=== PATIENT | male | born 1955 | race Caucasian/White ===

== ENCOUNTER 2019-05-20 10:37 | Emergency (ER) | payer OTHER ==
--- NOTE | 2019-05-20 12:32 | RAD REPORT ---
EXAM DESCRIPTION: US - Extremity Venous Uni Ltd - 05/20/2019 12:15 pm CLINICAL HISTORY: Pain;Swelling Leg swelling and edema. COMPARISON: No comparisons FINDINGS: Left lower extremity venous system was interrogated with Doppler technique. Normal flow, c ompressibility and augmentation was noted. There is no DVT present. IMPRESSION: No evidence of left lower extremity deep venous thrombosis.
--- NOTE | 2019-05-20 13:26 | ER ---
Nurse's Notes [facility] Name: Chuy Curtis Age: 63 yrs Sex: Male : 1955 Arrival Date: 05/20/2019 Time: 10:40 Bed 15 Private MD: Diagnosis: Pain in left lower leg;Edema, unspecified Presentation: 05/19 11:40 Chief complaint: Patient states: L knee swellon 3 weeks ago but has resolved. L calf ca1 pain and swelling. L ankle swelling. Pain started for couple weeks, but swelling started yesterday. Coronavirus screen: The patient has NOT traveled to a country currently being monitored by the [facility] within the last 14 days. The patient has NOT had contact with any known and/or suspected case of coronavirus. Ebola Screen: Patient negative for fever greater than or equal to 101.5 degrees Fahrenheit, and additional compatible Ebola Virus Disease symptoms Patient denies exposure to infectious person. Patient denies travel to an Ebola-affected area in the 21 days before illness onset. No symptoms or risks identified at this time. Initial Sepsis Screen: Does the patient meet any 2 criteria? No. Patient's initial sepsis screen is negative. Does the patient have a suspected source of infection? No. Patient's initial sepsis screen is negative. Risk Assessment: Do you want to hurt yourself or someone else? Patient reports no desire to harm self or others. 11:40 Method Of Arrival: Ambulatory ca1 11:40 Acuity: REDD 3 ca1 11:40 Onset of symptoms was May 20, 2019. ca1 Triage Assessment: 11:46 General: Appears in no apparent distress. comfortable, Behavior is calm, cooperative, ca1 appropriate for age. Pain: Complains of pain in left calf. Historical: - Allergies: 11:46 No Known Allergies; ca1 - Home Meds: 11:46 metoprolol tartrate 50 mg oral tab 1 tab once daily [Active]; donepezil 10 mg oral tab ca1 1 tab once daily [Active]; duloxetine 60 mg oral cpDR 1 cap once daily [Active]; - PMHx: 11:46 chronic back pain; GERD; Hypertension; ca1 - PSHx: 11:46 Appendectomy; Tonsillectomy; Shoulder; Knee; ca1 - Immunization history:: Adult Immunizations up to date, Pneumococcal vaccine is not up to date, Flu vaccine is not up to date. Patient has never been vaccinated. - Social history:: Smoking status: Patient reports use of chewing tobacco. Screenin:40 Abuse screen: Denies threats or abuse. Denies injuries from another. Nutritional bp screening: No deficits noted. Tuberculosis screening: No symptoms or risk factors identified. Fall Risk None identified. Assessment: 11:40 General: SEE TRIAGE NOTE. bp 12:40 Reassessment: RAD RESULTS PENDING. NO CHANGE IN PT STATUS. bp 13:49 Reassessment: PT D/C HOME AMBULATORY, DX WITH UNSPECIFIED LEG PAIN. bp Vital Signs: 11:40 BP 130 / 89; Pulse 61; Resp 17 S; Temp 97.3(O); Pulse Ox 100% on R/A; Weight 83.91 kg ca1 (R); Height 6 ft. 0 in. (182.88 cm); Pain 0/10; 12:47 BP 133 / 83; Pulse 86; Resp 17; Pulse Ox 100% ; bp 13:48 BP 141 / 79; Pulse 79; Resp 17; Temp 97.5; Pulse Ox 100% ; bp 11:40 Body Mass Index 25.09 (83.91 kg, 182.88 cm) ca1 ED Course: 10:40 Patient arrived in ED. rg4 11:44 Triage completed. ca1 11:46 Arm band placed on right wrist. ca1 12:16 US Extremity Venous Unilateral Ltd In Process Unspecified. EDMS 12:34 [facility]ccann [facility]C [facility]. kb 12:34 Daniele Estrada MD is Attending Physician. kb 12:39 Vasyl Gastelum, RN is Primary Nurse. bp 12:40 Patient has correct armband on for positive identification. Bed in low position. Call bp light in reach. Side rails up X2. 13:49 No provider procedures requiring assistance completed. Patient did not have IV access bp during this emergency room visit. Administered Medications: No medications were administered Outcome: 13:26 Discharge ordered by . kb 13:49 Discharged to home ambulatory. bp 13:49 Condition: stable 13:49 Discharge instructions given to patient, Instructed on discharge instructions, follow up and referral plans. Demonstrated understanding of instructions, follow-up care. 13:50 Patient left the ED. bp Signatures: Dispatcher [employer] EDSC Keri Mccann FNP-C FNP-Ckb Garcia, Rubi rg4 Vasyl Gastelum, TAN RN bp AcValerie lopez RN RN ca1 Corrections: (The following items were deleted from the chart) 11:46 11:46 Social history: Smoking status: Patient denies any tobacco usage or history of. ca1 ca1 11:47 11:40 Pulse 61bpm; Resp 17bpm; Spontaneous; Pulse Ox 100% RA; Temp 97.3F Oral; 83.91 kg ca1 Reported; Height 6 ft. 0 in.; BMI: 25.0; Pain 0/10; ca1 12:47 12:40 Reassessment: RAD STUDIES PENDING. NO CHANGE IN PT STATUS bp bp
--- NOTE | 2019-05-20 13:27 | EDPHYS ---
Physician Documentation [facility] Name: Chuy Curtis Age: 63 yrs Sex: Male : 1955 Arrival Date: 05/20/2019 Time: 10:40 Bed 15 Private MD: ED Physician Daniele Estrada HPI: 05/19 13:23 This 63 yrs old Male presents to ER via Ambulatory with complaints of Leg kb Pain. 13:23 The patient presents with pain, that is acute, swelling, tenderness. The complaints kb affect the right calf. Context: The problem was sustained at home, resulted from an unknown cause, the patient can fully bear weight, the patient is able to ambulate. Onset: The symptoms/episode began/occurred 2 week(s) ago. Modifying factors: The symptoms are alleviated by nothing. the symptoms are aggravated by weight bearing. Associated signs and symptoms: Pertinent positives: calf tenderness, swelling. Treatment prior to arrival includes: no previous treatment. Severity of symptoms: At their worst the symptoms were moderate, in the emergency department the symptoms are unchanged. The patient has not experienced similar symptoms in the past. The patient has not recently seen a physician. Pt reports he has had some pain and swelling to left lower leg intermittently over the past 2-3 weeks. States he was doing some stretches because his calf felt tight and then the swelling got worse. . Historical: - Allergies: 11:46 No Known Allergies; ca1 - Home Meds: 11:46 metoprolol tartrate 50 mg oral tab 1 tab once daily [Active]; donepezil 10 mg oral tab ca1 1 tab once daily [Active]; duloxetine 60 mg oral cpDR 1 cap once daily [Active]; - PMHx: 11:46 chronic back pain; GERD; Hypertension; ca1 - PSHx: 11:46 Appendectomy; Tonsillectomy; Shoulder; Knee; ca1 - Immunization history:: Adult Immunizations up to date, Pneumococcal vaccine is not up to date, Flu vaccine is not up to date. Patient has never been vaccinated. - Social history:: Smoking status: Patient reports use of chewing tobacco. ROS: 13:22 Constitutional: Negative for fever, chills, and weight loss, ENT: Negative for injury, kb pain, and discharge, Cardiovascular: Negative for chest pain, palpitations, and edema, Respiratory: Negative for shortness of breath, cough, wheezing, and pleuritic chest pain, Abdomen/GI: Negative for abdominal pain, nausea, vomiting, diarrhea, and constipation, Back: Negative for injury and pain, Skin: Negative for injury, rash, and discoloration, Neuro: Negative for headache, weakness, numbness, tingling, and seizure. 13:22 MS/extremity: Positive for pain, swelling, tenderness, of the left calf. Exam: 13:22 Constitutional: This is a well developed, well nourished patient who is awake, alert, kb and in no acute distress. Head/Face: Normocephalic, atraumatic. Neck: Trachea midline, no thyromegaly or masses palpated, and no cervical lymphadenopathy. Supple, full range of motion without nuchal rigidity, or vertebral point tenderness. No Meningismus. Chest/axilla: Normal chest wall appearance and motion. Nontender with no deformity. No lesions are appreciated. Cardiovascular: Regular rate and rhythm with a normal S1 and S2. No gallops, murmurs, or rubs. Normal PMI, no JVD. No pulse deficits. Respiratory: Lungs have equal breath sounds bilaterally, clear to auscultation and percussion. No rales, rhonchi or wheezes noted. No increased work of breathing, no retractions or nasal flaring. Abdomen/GI: Soft, non-tender, with normal bowel sounds. No distension or tympany. No guarding or rebound. No evidence of tenderness throughout. Back: No spinal tenderness. No costovertebral tenderness. Full range of motion. Neuro: Awake and alert, GCS 15, oriented to person, place, time, and situation. Cranial nerves II-XII grossly intact. Motor strength 5/5 in all extremities. Sensory grossly intact. Cerebellar exam normal. Normal gait. 13:22 Musculoskeletal/extremity: Extremities: grossly normal except: noted in the left calf: pain, swelling, tenderness, ROM: intact in all extremities, Circulation is intact in all extremities. Sensation intact. Weight bearing: able to fully bear weight. Vital Signs: 11:40 BP 130 / 89; Pulse 61; Resp 17 S; Temp 97.3(O); Pulse Ox 100% on R/A; Weight 83.91 kg ca1 (R); Height 6 ft. 0 in. (182.88 cm); Pain 0/10; 12:47 BP 133 / 83; Pulse 86; Resp 17; Pulse Ox 100% ; bp 13:48 BP 141 / 79; Pulse 79; Resp 17; Temp 97.5; Pulse Ox 100% ; bp 11:40 Body Mass Index 25.09 (83.91 kg, 182.88 cm) ca1 MDM: 12:34 Patient medically screened. kb 13:23 Data reviewed: vital signs, nurses notes. Data interpreted: Pulse oximetry: on room air kb is 100 %. Interpretation: normal. Counseling: I had a detailed discussion with the patient and/or guardian regarding: the historical points, exam findings, and any diagnostic results supporting the discharge/admit diagnosis, radiology results, the need for outpatient follow up, a family practitioner, a orthopedic surgeon, to return to the emergency department if symptoms worsen or persist or if there are any questions or concerns that arise at home. 13:26 ED course: nonpitting edema from left knee to ankle. No pulse deficit, cap refill wnl. kb 05/19 11:46 Order name: US Extremity Venous Unilateral Ltd; Complete Time: 12:53 kb Administered Medications: No medications were administered Disposition: 16:24 Co-signature as Attending Physician, Daniele Estrada MD I agree with the assessment and kdr plan of care. Disposition: 05/20/19 13:26 Discharged to Home. Impression: Pain in left lower leg, Edema, unspecified. - Condition is Stable. - Discharge Instructions: Musculoskeletal Pain, Edema, [id number]. - Medication Reconciliation Form, Thank You Letter, Antibiotic Education, Prescription Opioid Use, Work release form form. - Follow up: Emergency Department; When: As needed; Reason: Worsening of condition. Follow up: Private Physician; When: 2 - 3 days; Reason: Recheck today's complaints, Continuance of care, Re-evaluation by your physician. Signatures: Dispatcher [employer] EDMS Keri Mccann FNP-C FNP-Ckb Rittger, Kevin, MD MD kdr Peltier, Brian, RN RN bp Valerie Gutierrez RN RN ca1 Corrections: (The following items were deleted from the chart) 11:46 11:46 Social history: Smoking status: Patient denies any tobacco usage or history of. ca1 ca1 13:50 13:26 05/20/2019 13:26 Discharged to Home. Impression: Pain in left lower leg; Edema, bp unspecified. Condition is Stable. Forms are Medication Reconciliation Form, Thank You Letter, Antibiotic Education, Prescription Opioid Use. Follow up: Emergency Department; When: As needed; Reason: Worsening of condition. Follow up: Private Physician; When: 2 - 3 days; Reason: Recheck today's complaints, Continuance of care, Re-evaluation by your physician. kb
[2019-05-20 14:06] VITALS: O2SAT 100
[2019-05-20 14:09] VITALS: BP 141/79; TEMP 97.5
== END 2019-05-20 13:50 | disposition home or self-care (01) ==
LOC: ER 10:37
DX: M79.662 Pain in left lower leg (principal); R60.0 Localized edema; I10 Essential (primary) hypertension
CPT/HCPCS: 93971; 99283